=== PATIENT | female | born 1960 | race Hispanic/Latino ===

== ENCOUNTER → 2019-10-05 | Day surgery (SDC) | payer OTHER ==
[2019-09-30 10:17] LABS: BASOPHILS # (AUTO) 0.1 (0.0-0.1); BASOPHILS % 0.7 % (0.0-1.0); EOSINOPHILS # (AUTO) 0.2 (0.0-0.4); EOSINOPHILS % 2.3 % (0.0-6.0); HEMATOCRIT 38.7 % (34.2-44.1); HEMOGLOBIN 13.3 g/dL (12.0-16.0); LYMPHOCYTES # (AUTO) 2.9 (1.0-3.2); MEAN CORPUSCULAR HEMOGLOBIN 31.1 pg (28-32); MEAN CORPUSCULAR HGB CONC 34.4 g/dL (31-35); MEAN CORPUSCULAR VOLUME 90.6 fL (81-99); MONOCYTES # (AUTO) 0.5 (0.2-0.8); MONOCYTES % 7.1 % (4.4-11.3); NEUTROPHILS # (AUTO) 3.4 (2.1-6.9); NEUTROPHILS % 48.8 % (38.7-80.0); PLATELET COUNT 251 x10e3/uL (140-360); RED BLOOD COUNT 4.27 x10e6/uL (3.6-5.1)
[2019-09-30 11:15] LABS: ALANINE AMINOTRANSFERASE 22 IU/L (0-55); ALBUMIN 3.7 g/dL (3.5-5.0); ALBUMIN/GLOBULIN RATIO 0.9 (0.8-2.0); ALKALINE PHOSPHATASE 77 IU/L (40-150); BLOOD UREA NITROGEN 11 mg/dL (7-26); BUN/CREATININE RATIO 16 (6-25); CALCIUM 8.8 mg/dL (8.4-10.2); CARBON DIOXIDE 26 mmol/L (22-29); CHLORIDE 105 mmol/L (98-107); CREATININE, SERUM 0.69 mg/dL (0.57-1.11); EST GLOMERULAR FILTRATION RATE > 60 ML/MIN (60-); GLUCOSE 95 mg/dL (74-118); SODIUM 139 mmol/L (136-145)
[~2019-10-05] VITALS: Ht 144.8 cm; Wt 72.6 kg
[~2019-10-05] MED LIST: BENZOCAINE 20% SPR 60 ML CAN ONE; DILTIAZEM HCL90 MG PO; LIDOCAINE HCL 2% LOCAL 20 ML VIAL ONE; PROPOFOL IV EMULSION 10 MG/ML 20 ML VIAL ONE; SODIUM CHLORIDE 0.9% 1000ML 1,000 ML ONE
[2019-10-05 12:21] VITALS: BP 126/59
--- NOTE | 2019-10-05 14:45 | NUR ---
1430 - pt received for DC, placed on bedside monitoring. pt positioned for procedure. IV site patent to left hand , VS WNL for patient , NSR rhythm 1450 - all responsible staff present, Timeout performed 1450 - hurricaine spray (spray 1) to oral cavity 1451 - hurricaine spray (spray 2) to oral cavity 1452 - bite block positioned and DC probe passed 1458 - DC probe removed , no gross trauma or distress observed 1504 - pt taken to CCL 10 for further recovery
[2019-10-05 15:10] VITALS: BP 97/63
--- NOTE | 2019-10-05 15:10 | NUR ---
1510p Received pt to room #10 ,bedside report received from Michael SINGLETARY. Alert oriented and appropriate, PERRLA, respirations even and unlabored to room air. Pulses x4 extremities equal and strong. Pedal pulses PT/DP x4 and marked. Cap fill brisk < 3 sec. DC with Loop recorder place. BS monitor sync [employer] Model 77663. Mid chest 4x4 dressing intact. Skin warm and dry integrity appears D/I . IV 20g to rt hand presents healthy w/o s/s of infiltration or complaint. Abdomen soft and supple. pt offered toileting, denies need to urinate or defecate. No personal affects with patient. Family at bedside. Pt and family verbalizes understanding of POC. Currently w/o complaint of pain or need. ds/rn
--- NOTE | 2019-10-05 15:15 | NUR ---
Internal Loop recorder procedure performed at bedside under clean technique by Dr. Zacarias with [employer] assisting. VS wnl. No distress Report off to Carlene Mancini RN
[2019-10-05 15:30] VITALS: BP 87/58
[2019-10-05 16:00] VITALS: BP 106/47
--- NOTE | 2019-10-05 16:15 | NUR ---
1615p meets DC criteria. mid chesr dressing assessed for s/s of complication and presence of hematoma. Sklin warm, dry, no discolor, and pulses present. IV removed from rt hand . Distal tip appears intact. VS WNL. Pt denies pain, sob, or need at this time. Family at bs. Review of discharge paperwork and follow up instructions. verbalized understanding. Pt to wheelchair and transported to front of hospital. Transferred to private vehicle under own strength w/o incident with DC paperwork in hand. - Has [employer] bedside monitor and instructions. ds/rn
[2019-10-05 16:30] VITALS: BP 113/63
--- NOTE | 2019-10-05 19:31 | Operative Report ---
DATE OF PROCEDURE: 10/05/2019 SURGEON: Abdullahi Zacarias MD INDICATION: Atrial fibrillation. PROCEDURE PERFORMED: Insertable loop recorder. PROCEDURE IN DETAIL: Left anterior chest wall was anesthetized using subcutaneous lidocaine. A [employer] LINQ, serial #[id number] was inserted subcutaneously without complication. Skin approximated using Dermabond. The patient discharged home the same day. COMPLICATIONS: None. BLOOD LOSS: Minimal. RECOMMENDATIONS: Remote monitoring. Abdullahi Zacarias MD KSB/MODL /[id number]
== END | disposition home or self-care (01) ==
LOC: OR 11:16
PROVIDERS: ATTEND Internal Medicine Interventional Cardiology
DX: I48.91 Unspecified atrial fibrillation (principal); I25.118 Atherosclerotic heart disease of native coronary artery with other forms of angina pectoris; I47.1 Supraventricular tachycardia; J45.909 Unspecified asthma, uncomplicated; Z91.041 Radiographic dye allergy status; Z01.812 Encounter for preprocedural laboratory examination; Z11.59 Encounter for screening for other viral diseases; Z82.49 Family history of ischemic heart disease and other diseases of the circulatory system
CPT/HCPCS: 33285; 36415; 80053; 85025; 93312; 93320; 93325; C1764; J2001; J2704; J7030; U0002; 93307

== ENCOUNTER → 2019-11-16 | Day surgery (SDC) | payer OTHER ==
[2019-11-11 09:49] LABS: BASOPHILS # (AUTO) 0.1 (0.0-0.1); BASOPHILS % 0.7 % (0.0-1.0); EOSINOPHILS # (AUTO) 0.2 (0.0-0.4); EOSINOPHILS % 3.4 % (0.0-6.0); HEMATOCRIT 36.6 % (34.2-44.1); HEMOGLOBIN 12.4 g/dL (12.0-16.0); LYMPHOCYTES # (AUTO) 2.9 (1.0-3.2); LYMPHOCYTES % 43.4 % (18.0-39.1); MEAN CORPUSCULAR HEMOGLOBIN 30.8 pg (28-32); MEAN CORPUSCULAR HGB CONC 33.9 g/dL (31-35); MEAN CORPUSCULAR VOLUME 90.8 fL (81-99); MONOCYTES # (AUTO) 0.5 (0.2-0.8); NEUTROPHILS # (AUTO) 3.1 (2.1-6.9); NEUTROPHILS % 45.2 % (38.7-80.0); PLATELET COUNT 217 x10e3/uL (140-360); RED BLOOD COUNT 4.03 x10e6/uL (3.6-5.1); RED CELL DISTRIBUTION WIDTH 11.9 % (11.7-14.4)
[2019-11-11 10:16] LABS: ALANINE AMINOTRANSFERASE 17 IU/L (0-55); ALBUMIN 3.8 g/dL (3.5-5.0); ALBUMIN/GLOBULIN RATIO 1.2 (0.8-2.0); ALKALINE PHOSPHATASE 65 IU/L (40-150); ANION GAP 14.3 mmol/L (8-16); BLOOD UREA NITROGEN 16 mg/dL (7-26); BUN/CREATININE RATIO 24 (6-25); CALCIUM 8.5 mg/dL (8.4-10.2); CARBON DIOXIDE 23 mmol/L (22-29); CHLORIDE 106 mmol/L (98-107); CREATININE, SERUM 0.68 mg/dL (0.57-1.11); EST GLOMERULAR FILTRATION RATE > 60 ML/MIN (60-); GLUCOSE 96 mg/dL (74-118); POTASSIUM 4.3 mmol/L (3.5-5.1); SODIUM 139 mmol/L (136-145)
[~2019-11-16] VITALS: Ht 147.3 cm; Wt 69.9 kg
[~2019-11-16] MED LIST changes: +ALPRAZOLAM 0.5 MG TAB ONE; +ASPIRIN EC81 MG PO; +ATORVASTATIN CA10 MG PO; -BENZOCAINE 20% SPR 60 ML CAN ONE; +DIPHENHYDRAMINE HCL 25 MG CAP ONE; +FENTANYL CITRATE/PF 100MCG/2 ML INJ ONE; +HEPARIN SOD/SOD CHLORIDE 2,000 ML ONE; +IOPAMIDOL 370 MG/ML 200 ML INFUS..BTL INJ ONE; +METHYLPREDNISOLONE SOD SUCC 125 MG/2ML VIAL ONE; +MIDAZOLAM HCL 2 MG/2 ML VIAL ONE; +OMEGA 3 1,0001 EACH PO; -PROPOFOL IV EMULSION 10 MG/ML 20 ML VIAL ONE; +VERAPAMIL HCL 2.5 MG/ML 2 ML VIAL ONE; +ZYRTEC10 MG PO
[2019-11-16 15:45] VITALS: BP 115/72
--- NOTE | 2019-11-16 15:45 | NUR ---
1545pm RECEIVING NOTE [employer]............................................................... Bedside report received from HAYDER Malin. Identifierx2. Alert oriented and appropriate, PERRLA, respirations even and unlabored to room air. Pulses x4 extremities equal and strong. Pedal pulses PT/DP X4 and marked. Cap fill brisk < 3 sec. Rt TR band NO gross issues pain pallor pressure or dysrhythmia. Skin warm and dry integrity appears D/I. IV 20g to left hand presents healthy w/o s/s of infiltration or complaint. Abdomen soft and supple. pt offered toileting, denies need to urinate or defecate. No personal affects with patient. Family phoned, Stalin son to [employer] at 1700pm will do curbside education. Pt verbalizes understanding of POC. Currently w/o complaint of pain or need.ds/rn
[2019-11-16 16:00] VITALS: BP 107/72
[2019-11-16 16:15] VITALS: BP 101/82
[2019-11-16 16:30] VITALS: BP 109/77
--- NOTE | 2019-11-16 16:30 | NUR ---
1630p RADIAL Compression removal: Initial Cuff volume 13 cc 1630p -3cc Removed No hematoma/bleeding noted with normal neurovascular function. 1645p -5 cc Removed No hematoma/ bleeding noted with normal neurovascular function. 1700p -5cc Removed No hematoma/bleeding noted with normal neurovascular function. Air removal completed. Stasis achieved sterile 2x2,Tegaderm, Coban dressing No hematoma, bleeding noted with normal neurovascular function. Wrist splint in place. Pt instructed on POC. Ds/Rn
[2019-11-16 16:45] VITALS: BP 100/77
[2019-11-16 17:00] VITALS: BP 115/67
--- NOTE | 2019-11-16 17:00 | NUR ---
1700pm [employer] DISCHARGE NURSING NOTE Pt meets DC criteria. Back to baseline orientation, tolerating po intake. rt wrist assessed for s/s of complication and presence of hematoma. skin warm, dry, no discolor, and pulses present. IV removed from left hand.Distal tip appears intact. VS WNL. Pt denies pain, sob, or need at this time. Family at [facility] teaching done. Review of discharge paperwork and follow up instructions. verbalized understanding. Pt to wheelchair and transported to front of hospital. Transferred to private vehicle under own strength w/o incident with DC paperwork in hand. - ds/rn
--- NOTE | 2019-11-16 20:57 | Operative Report ---
DATE OF PROCEDURE: 11/16/2019 SURGEON: Abdullahi Zacarias MD INDICATIONS: Coronary artery disease, angina, abnormal stress test. PROCEDURES PERFORMED: 1. Ultrasound-guided access in the right radial artery with sheath placement. 2. Conscious sedation, 35 minutes. 3. Left heart catheterization, selective coronary angiography. 4. Deployment of right wrist TR band. COMPLICATIONS: None. RECOMMENDATIONS: Medical therapy. DESCRIPTION OF PROCEDURE: Access was obtained in the right radial artery using ultrasound guidance. A 5-Polish sheath was placed. Coronary angiography demonstrated mild coronary artery disease, 10% to 20% luminal irregularities. No critical stenosis or occlusions were noted. LV end-diastolic pressure of 10. No gradient across the aortic valve on pullback. Right wrist TR band applied. The patient discharged home the same day. Abdullahi Zacarias MD KSB/MODL /[id number]
== END | disposition home or self-care (01) ==
LOC: CATH LAB 12:35
PROVIDERS: ATTEND Internal Medicine Interventional Cardiology
DX: I25.118 Atherosclerotic heart disease of native coronary artery with other forms of angina pectoris (principal); R94.39 Abnormal result of other cardiovascular function study; I47.1 Supraventricular tachycardia; J45.909 Unspecified asthma, uncomplicated; Z01.812 Encounter for preprocedural laboratory examination; Z11.59 Encounter for screening for other viral diseases; Z79.82 Long term (current) use of aspirin; Z68.34 Body mass index [BMI] 34.0-34.9, adult; Z82.49 Family history of ischemic heart disease and other diseases of the circulatory system
CPT/HCPCS: 36415; 76937; 80053; 85025; 93458; C1769 ×2; C1887; J2001; J2250; J2930; J3010; J7030; Q9967; U0002; 99152; 99153